=== PATIENT | female | born 2005 | race Caucasian/White ===

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

== ENCOUNTER 2023-05-11 01:26 | Emergency (ER) | payer OTHER, SELFPAY ==
[2023-05-11 01:30] VITALS: BP 109/67; PULSE 68; RESP 18; TEMP 36.8; O2SAT 98; BMI 17.2
[2023-05-11 03:40] VITALS: BP 110/73; PULSE 78; RESP 16; TEMP 36.5; O2SAT 98
--- NOTE | 2023-05-11 04:52 | ED.DENTAL ---
HPI - Dental/Oral General Chief complaint: Dental/Oral Stated complaint: L side tooth infection/ unable to swallow Time Seen by Provider: 05/11/23 04:52 Source: patient Mode of arrival: ambulatory Limitations: no limitations History of Present Illness HPI Narrative: patient history of dental cavity been having pain for last few days seen the dentist started on amoxicillin pain got worse with swelling since last night Related Data Previous Rx's Medication Instructions Recorded tramadol 50 mg tablet 50 mg PO Q6H PRN pain #20 tabs 05/11/23 Allergies Allergy/AdvReac Type Severity Reaction Status Date / Time No Known Allergies Allergy Verified 05/11/23 05:00 Review of Systems Review of Systems: Yes all other systems are reviewed and are negative PMFSH Social History Social History Smoked in Last 30 Days: Yes Use of substances other than those prescribed or required for medical reasons: No Advance Directives: No Advance Directives Information Provided: Yes Physical Exam Vital Signs: Vital Signs: Last Vital Signs Temp 97.0 F 05/11/23 05:18 Pulse 74 05/11/23 05:18 Resp 16 05/11/23 05:18 BP 122/64 05/11/23 05:18 Pulse Ox 97 05/11/23 05:18 O2 Del Method Room Air 05/11/23 05:18 BMI result Body Mass Index 17.2 HEENT: Teeth image: 1. tender tooth 20 with soft tissue swelling suggestive of abscess Medications Administered Discontinued Medications Generic Name Dose Route Start Last Admin Trade Name Freq PRN Reason Stop Dose Admin Lidocaine HCl 2 ml 05/11/23 05:00 05/11/23 05:05 Lidocaine Hcl 1 % Mpf 2 Ml Vial INFILTRATI 05/11/23 05:01 2 ml ONCE ONE Administration Oxycodone HCl 5 mg 05/11/23 05:16 05/11/23 05:23 Oxycodone Hcl Immed Release 5 Mg Tablet PO 05/11/23 05:17 5 mg ONCE ONE Administration Medical Decision Making Medical Decision Making [facility] Narrative: under local anaesthesia dental abscess was aspirated using 20 gauge needle 0.5 mL of pus drained patient felt better discharge patient home and take antibiotics follow with dentist Discharge Plan Discharge Clinical Impression: Dental abscess Patient Disposition: Home, Self-Care Instructions: Dental Abscess (ED) Additional Instructions: continue antibiotic and pain medication warm packs follow-up with dentist Prescriptions: New tramadol 50 mg tablet 50 mg PO Q6H PRN (Reason: pain) Qty: 20 0RF Interventions: ED Discharge Assessment Last Done: 05/11/23 05:44 Discharge Date/Time: 05/11/23 05:45
[2023-05-11] MEDS: Lidocaine HCl 1 % MPF 2 ML VIAL INFILTRATI (05:05)
[2023-05-11 05:18] VITALS: BP 122/64; PULSE 74; RESP 16; TEMP 36.1; O2SAT 97
[2023-05-11] MEDS: oxyCODONE HCl Immed Release 5 MG TABLET PO (05:23)
== END 2023-05-11 05:45 | disposition home or self-care (01) ==
PROVIDERS: Emergency Provider Internal Medicine
DX: K04.7 Periapical abscess without sinus (principal)
CPT/HCPCS: 99283; 99284

== ENCOUNTER 2025-10-18 15:06 | Emergency (ER) | payer MEDICAID, SELFPAY ==
--- NOTE | ~2025-10-18 | XR_ITS ---
EXAMINATION: XR CHEST CLINICAL INFORMATION: chest pain COMPARISON: None available. TECHNIQUE: 2 views of the chest were obtained. FINDINGS: The cardiac, hilar, and mediastinal contours are normal. The lungs are clear bilaterally. There is no pneumothorax or pleural effusion. There is no focal osseous or soft tissue abnormality. XR/XR chest 2V IMPRESSION: Normal chest. Electronically signed by: Priyank Garcia MD 10/18/2025 04:24 PM [facility]
[2025-10-18 15:19] VITALS: BP 121/70; PULSE 81; RESP 18; TEMP 36.8; O2SAT 96; BMI 17.3
--- NOTE | 2025-10-18 15:20 | ED.GENADULT ---
HPI - General Adult General Chief complaint: Chest Pain Stated complaint: Lung Pain, Shoulder Pain, Shortness of Breath Time Seen by Provider: 10/18/25 21:24 Source: patient Limitations: no limitations History of Present Illness ED Provider: Medina Boudreaux PA-C HPI narrative: 20-year-old female with a history of asthma and tobacco abuse, presents with cough and cold symptoms x1 week. Patient has developed left-sided chest and back pain, worse with breathing and coughing. The cough is dry and repetitive with the wheezing at times. Denies fever. Denies sick contacts with similar symptoms. Related Data Previous Rx's ?Medication ?Instructions ?Recorded tramadol 50 mg tablet 50 mg PO Q6H PRN pain #20 tabs 05/11/23 albuterol sulfate 90 mcg/actuation 2 puff inhalation Q4-6H PRN 10/18/25 aerosol inhaler (Ventolin HFA) shortness of breath or wheezing #8.5 grams doxycycline hyclate 100 mg capsule 100 mg PO BID #19 caps 10/18/25 ketorolac 10 mg tablet 10 mg PO Q6H PRN pain #20 tabs 10/18/25 methocarbamol 750 mg tablet 750 mg PO Q8H PRN pain, severe #15 10/18/25 tabs prednisone 20 mg tablet 40 mg (2 x 20 mg) PO DAILY #8 tabs 10/18/25 Allergies Allergy/AdvReac Type Severity Reaction Status Date / Time No Known Allergies Allergy Verified 10/18/25 15:23 Review of Systems Review of Systems: Yes all other systems are reviewed and are negative Constitutional: Constitutional: Reports fatigue, Denies fever(s) and Reports malaise ENT: Denies nasal congestion Cardiovascular: Cardiovascular: Reports chest pain and Denies dyspnea Respiratory: Respiratory: Denies chest congestion, Reports cough, Denies dyspnea and Reports wheezing Musculoskeletal: Musculoskeletal: Reports back pain Endocrine: Endocrine: Reports fatigue Allergic/Immunologic: Allergic/Immunologic: Reports wheezing PMFSH Past Medical History Attestation statement: The following information was validated with the patient. Social History Social History Advance Directives: No Advance Directives Information Provided: Yes Do you have a plan to hurt others: No Plan Physical Exam ED Vital Signs: Vital Signs - 24 hr 10/18/25 15:19 Temperature 98.3 F Pulse Rate 81 Respiratory Rate 18 Blood Pressure 121/70 Pulse Oximetry 96 Oxygen Delivery Method Room Air BMI result Body Mass Index 17.3 Const Other: Alert Orientation/consciousness: patient oriented x3 Resp Other: Nonlabored respirations, lungs clear to auscultation, active bronchospasm at times no active wheeze Cardio Other: Normal peripheral perfusion Skin Other: Warm dry no rash Neuro General: patient oriented x3, gait normal, no focal motor deficits and CN's II-XI intact bilaterally Psych Other: Cooperative Course Course Course Narrative: Rapid medical examination performed in triage by Estefani Flores PA-C: Patient is a 20 year old female presenting to the emergency department with chest pain with breathing. Detailed physical exam and review of systems are deferred to the orthotic/prosthetic clinician. EKG, imaging, swabs ordered. Patient placed back in the waiting room pending room availability and results. Medications Administered Discontinued Medications Generic Name Dose Route Start Last Admin Trade Name Freq PRN Reason Stop Dose Admin Doxycycline Monohydrate 100 mg 10/18/25 21:34 10/18/25 21:46 Doxycycline Monohydrate 100 Mg Capsule PO 10/18/25 21:35 100 mg ONCE ONE Administration Ketorolac Tromethamine 15 mg 10/18/25 21:34 10/18/25 21:46 Ketorolac Tromethamine 15 Mg/Ml Vial IM 10/18/25 21:35 15 mg ONCE ONE Administration Methocarbamol 750 mg 10/18/25 21:34 10/18/25 21:46 Methocarbamol 750 Mg Tablet PO 10/18/25 21:35 750 mg ONCE ONE Administration Prednisone 40 mg 10/18/25 21:34 10/18/25 21:46 Prednisone 20 Mg Tablet PO 10/18/25 21:35 40 mg ONCE ONE Administration Medical Decision Making Medical Decision Making [facility] Narrative: 20-year-old female with a history of asthma and tobacco abuse, presents with cough and cold symptoms x1 week. Patient has developed left-sided chest and back pain, worse with breathing and coughing. The cough is dry and repetitive with the wheezing at times. Denies fever. Denies sick contacts with similar symptoms. Problem: Asthma, tobacco abuse History: Per patient I have considered the following differential diagnoses: ACS, costochondritis, pneumonia, bronchitis, viral syndrome Plan: In regard to the chest discomfort, it is consistent with costochondritis, and she has had underlying viral syndrome/asthma exacerbation. ACS was considered, however the patient has no risk factors other than tobacco use, for coronary artery disease. Cardiac enzymes EKG obtained. There was no pneumonia on chest x-ray, we will cover her for bronchitis given active tobacco abuse. Sending with the anti-inflammatory and muscle relaxant for her costochondritis. I have independently reviewed the following tests: Labs: Slight leukocytosis with left shift, not anemic, no electrolyte abnormality, troponin less than 2.7, viral panel negative EKG: Sinus rhythm, rate of 70 no ischemic changes no ectopy QTC 421 Chest x-ray:FINDINGS: The cardiac, hilar, and mediastinal contours are normal. The lungs are clear bilaterally. There is no pneumothorax or pleural effusion. There is no focal osseous or soft tissue abnormality. XR/XR chest 2V IMPRESSION: Normal chest. Differential Diagnosis Differential Diagnoses: The differential diagnosis associated with the presentation includes See [facility] Admission/Observation Consideration of admission/observation: Escalation of care including admission/observation considered Not applicable Lab Data [facility] Lab Attestation statement: I reviewed the patient's lab results. 10/18/25 19:25 10/18/25 19:25 Labs: Lab Results 10/18/25 10/18/25 Range/Units 15:34 19:25 WBC 12.8 H (4.8-10.8) X10*3/uL RBC 4.63 (4.20-5.50) X10*6/uL Hgb 12.2 (12.0-16.0) g/dl Hct 38.1 (37.0-47.0) % MCV 82.3 (80.0-98.0) fL MCH 26.3 L (27.0-33.0) pg MCHC 32.0 (31.0-35.0) g/dl RDW 12.9 (11.0-16.0) % Plt Count 191 (160-400) X10*3/uL MPV 10.5 (9.4-12.3) fL Immature Gran % (Auto) 0.5 H (0.0-0.4) % Neut % (Auto) 76.5 H (45-73) % Lymph % (Auto) 15.3 L (20-40) % Hancock % (Auto) 7.3 (2-11) % Eos % (Auto) 0.2 (0-4) % Baso % (Auto) 0.2 (0-2) % Lymph # (Auto) 2.0 (1.2-4.9) X10*3/uL Hancock # (Auto) 0.9 (0.1-1.2) X10*3/uL Eos # (Auto) 0.0 (0.0-0.4) X10*3/uL Baso # (Auto) 0.0 (0.0-0.2) X10*3/uL Abs Immat Gran (auto) 0.06 H (0.00-0.03) X10*3/uL Absolute Neuts (auto) 9.8 H (2.0-8.3) x10*3/uL Absolute Nucleated RBC 0.000 (0.0-0.012) X10*3/uL Nucleated RBC % (auto) 0.0 (0.0-0.2) /100WBC Sodium 139 (135-145) mmol/L Potassium 4.1 (3.3-5.1) mmol/L Chloride 108 (96-108) mmol/L Carbon Dioxide 22 (22-29) mmol/L Anion Gap 13 (12-20) BUN 8 L (9-16) mg/dL Creatinine 0.66 (0.5-1.4) mg/dL Estim Creat Clear Calc 93.7 Estimated GFR > 60 Random Glucose 107 (60-115) mg/dL Calcium 8.8 (8.4-10.2) mg/dL Total Bilirubin 0.4 (0.0-1.0) mg/dL AST 35 H (5-31) U/L ALT 29 (0-31) U/L Alkaline Phosphatase 55 (39-117) U/L Troponin I High Sens < 2.7 (<3.5-17.0) ng/L Total Protein 6.7 (6.5-8.0) g/dL Albumin 4.2 (3.5-5.0) g/dL TSH 0.57 (0.32-4.0) uIU/mL Beta HCG, Quant < 2 mIU/mL Influenza Type A (PCR) NEGATIVE (Negative) Influenza Type B (PCR) NEGATIVE (Negative) RSV RNA Qual (PCR) NEGATIVE (Negative) SARS-CoV-2 RNA (RT-PCR) NEGATIVE (Negative) S. pyogenes GrpA ESTEBAN Negative (Negative) Independent Interpretation I performed an independent interpretation of an: EKG Radiology Impression Discussion of test interpretation with radiology: I have reviewed the radiologist's reading. Discharge Plan Discharge Clinical Impression: Bronchitis, Acute costochondritis Patient Disposition: Home, Self-Care Instructions: Costochondritis (ED), Acute Bronchitis (ED) Additional Instructions: You are being treated for bronchitis and costochondritis. When you have a virus, it can cause inflammation of the cartilage between your ribs, this is why you were having chest and back pain. Take the ketorolac as directed, take the methocarbamol as needed, this is a muscle relaxant, it will cause drowsiness, do not drive or operate machinery while taking this medication. For the bronchitis, complete the course of doxycycline, take the steroid as directed, use your inhaler as needed. Follow up with your primary care provider as needed. Prescriptions: New doxycycline hyclate 100 mg capsule 100 mg PO BID Qty: 19 0RF ketorolac 10 mg tablet 10 mg PO Q6H PRN (Reason: pain) Qty: 20 0RF Rx Instructions: maximum total duration of 5 days from all oral, intranasal, or parenteral formulations, patient received an intramuscular dose of Toradol here in the emergency room methocarbamol 750 mg tablet 750 mg PO Q8H PRN (Reason: pain, severe) Qty: 15 0RF prednisone 20 mg tablet 40 mg PO DAILY Qty: 8 0RF albuterol sulfate [Ventolin HFA] 90 mcg/actuation HFA aerosol inhaler 2 puff inhalation Q4-6H PRN (Reason: shortness of breath or wheezing) Qty: 8.5 0RF No Action tramadol 50 mg tablet 50 mg PO Q6H PRN (Reason: pain) Qty: 20 0RF Stand Alone Forms: Work/School Release Interventions: ED Discharge Assessment Last Done: 10/18/25 22:01 Discharge Date/Time: 10/18/25 22:01 Print Language: Bruneian
--- NOTE | 2025-10-18 15:21 | ECG_ITS ---
Test Reason : CHEST PAIN Blood Pressure : */* mmHG Vent. Rate : 70 BPM Atrial Rate : 70 BPM P-R Int : 100 ms QRS Dur : 88 ms QT Int : 390 ms P-R-T Axes : 73 70 34 degrees QTcB Int : 421 ms Sinus rhythm with sinus arrhythmia with short MA Otherwise normal ECG No previous ECGs available Referred By: Estefani Flores Electronically Signed By: GLADIS HARRINGTON
[2025-10-18 15:51] LABS: Strep A Nucleic Acid Negative (Negative)
[2025-10-18 17:02] LABS: Resp Syncy Virus RNA Qual PCR NEGATIVE (Negative); SARS COV2 PCR INHOUSE NEGATIVE (Negative)
[2025-10-18 19:31] LABS: Hematocrit 38.1 % (37.0-47.0); Hemoglobin 12.2 g/dl (12.0-16.0); Imm Gran Abs Auto 0.06 X10*3/uL (0.00-0.03); Imm Gran Pct Auto 0.5 % (0.0-0.4); Lymphocytes Absolute Auto 2.0 X10*3/uL (1.2-4.9); MANUAL DIFF FLAG NO; Mean Corpuscular HGB Conc 32.0 g/dl (31.0-35.0); Mean Corpuscular Hemoglobin 26.3 pg (27.0-33.0); Mean Corpuscular Volume 82.3 fL (80.0-98.0); NRBC Abs Auto 0.000 X10*3/uL (0.0-0.012); NRBC Pct Auto 0.0 /100WBC (0.0-0.2); Platelet Count 191 X10*3/uL (160-400); Red Blood Count 4.63 X10*6/uL (4.20-5.50); White Blood Count 12.8 X10*3/uL (4.8-10.8)
[2025-10-18 19:51] LABS: Alanine Aminotransferase 29 U/L (0-31); Albumin Level 4.2 g/dL (3.5-5.0); Alkaline Phosphatase 55 U/L (39-117); Anion Gap 13 (12-20); Aspartate Amino Transferase 35 U/L (5-31); Blood Urea Nitrogen 8 mg/dL (9-16); Calcium 8.8 mg/dL (8.4-10.2); Carbon Dioxide 22 mmol/L (22-29); Chloride 108 mmol/L (96-108); Creatinine Clr Calc Pharmacy 93.7; Estimated Glomerular Filt Rate > 60; Potassium 4.1 mmol/L (3.3-5.1); Sodium 139 mmol/L (135-145); Total Protein 6.7 g/dL (6.5-8.0)
[2025-10-18 19:54] LABS: Troponin-I High Sensitivity < 2.7 ng/L (<3.5-17.0)
--- OUTSIDE RECORDS SUMMARY | 2025-10-18 21:41 | XMS_ITS ---
Author Name [facility] Organization Unknown Care Team Organization Name Specialty Phone Email Start Date End Da te [facility] 03/29/2023 024 [facility] 08/28/20222023
--- OUTSIDE RECORDS SUMMARY | 2025-10-18 21:41 | XMS_ITS | Clinical Summary ---
Author Organization [email or web address] Address [address] [place] [address] Care Team Providers Care Personnel Recruiter Name Role Phone Unavailable Primary Care Provider Unavailabl e Allergies No known active allergies Medications No known medications Active Problems Problem Noted Date Diagnosed Date Dental abscess 05/09/2023 Social History Tobacco Use Types Packs/Day Years Used Date Smoking Tobacco: Former Cigarettes 0.3 0.5 Passive Smoke Exposure: Past Smokeless Tobacco: Former Tobacco Cessation:Counseling Given: No Alcohol Use Standard Drinks/Week Comments Never 0 (1 standard drink = 0.6 oz pur e alcohol) Comments Unknown Sex and Gender Information Value Date Recorded Sex Assigned at Female 05/09/2023 11:01 AM EDT Legal Sex Female 10:56 AM EDT Gender Identity Female 05/09/2023 11:01 AM EDT Sexual Orientation Choose not to disclose 2022 11:01 AM EDT Plan of Treatment Health Maintenance Due Date Last Done Comments Chlamydia and Gonorrhea Screening 2003 Dental Oral Exam 2003 Dental Prophylaxis 2003 Dental X-Ray: Bitewings 2003 Depression Screening 2003 HIV Screening 2003 SDOH Screening 2003 Disability Screening 2003 Alcohol/Substance Use Screening 2015 Family Planning (PISQ) 2018 Meningococcal B Vaccine (1 of 2 - Standard) 2019 Hepatitis C Screening 2021 Pneumococcal Vaccine: Pediatrics (0 to 5 Years) and At-Risk Patients (6 to 49) Years (1 of 2 - PCV) 2022 10/28/2004, 2003, 2003 Tobacco Screening 05/20/2024 05/20/2023 Pap Smear 2024 COVID-19 Vaccine ( - season) 2025 Influenza Vaccine (#1) 2025 0, 10/12/2019, 08/13/2018, Additional history exists DTaP/Tdap/Td Vaccines (7 - Td or Tdap) 2025 2015, 11/11/2007, 11/17/2004, Additional history exists Dental X-Ray: Full Mouth 05/10/2026 05/09/2023 Zoster Vaccines (1 of 2) 2053 RSV Patients and Patients Aged 60 years or older (1 - 1-dose 75+ series) 2078 Hepatitis B Vaccines Completed 05/30/2004, 2003, 2003 HIB Vaccines Completed 11/17/2004, 10/22, 2003, Additional history exists IPV Vaccines Completed 11/11/2007, 10/22, 05/30/2004, Additional history exists HPV Vaccines Completed 09/28/2016, 09/14/2015 Meningococcal Vaccine Completed 10/12/2019, 015 Hepatitis A Vaccines Aged Out No long er eligible based on patient's age to complete this topic RSV under 20 months Aged Out No longe r eligible based on patient's age to complete this topic Rotavirus Vaccines Aged Out No longer eligible based on patient's age to complete this topic Procedures Procedure Name Priority Date/Time Associated Diagnosis Comments PANORAMIC RADIOGRAPHIC IMAGE Routine 05/09/2023 1:00 PM EDT from Last 3 Months or Most Recently Relevant to Health Maintenance Insurance [facility] MEDICAID STAND ADULT
[2025-10-18 21:51] VITALS: BP 126/67; PULSE 60; RESP 18; TEMP 36.6; O2SAT 95
[2025-10-18 22:01] VITALS: BP 126/67; PULSE 60; RESP 18; TEMP 36.6; O2SAT 95
== END 2025-10-18 22:01 | disposition home or self-care (01) ==
PROVIDERS: Physician Assistant Medical; Emergency Provider Emergency Medicine
DX: J20.9 Acute bronchitis, unspecified (principal); M94.0 Chondrocostal junction syndrome [Tietze]; R07.89 Other chest pain; R06.02 Shortness of breath; M54.50 Low back pain, unspecified; Z03.818 Encounter for observation for suspected exposure to other biological agents ruled out
CPT/HCPCS: 36415; 71046; 80053; 84443; 84484; 84702; 85025; 87637; 87651; 93005; 96372; 99284; J1885

== ENCOUNTER → 2025-10-18 15:21 | Outpatient (BNV) | payer OTHER, SELFPAY | PROVIDERS: Visit Provider Radiology Diagnostic Radiology | DX: R07.9 Chest pain, unspecified (principal) | CPT/HCPCS: 71046 ==

== ENCOUNTER → 2025-10-18 15:21 | Outpatient (BNV) | payer OTHER, SELFPAY | PROVIDERS: Visit Provider Internal Medicine | DX: R07.9 Chest pain, unspecified (principal) | CPT/HCPCS: 93010 ==